=== PATIENT | male | born 2000 | race Caucasian/White ===

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

== ENCOUNTER 2022-12-04 19:27 | Emergency (ER) | payer OTHER, SELFPAY ==
--- NOTE | 2022-12-04 19:28 | ED.EXTPRO ---
HPI - Extremity Problem General Chief complaint: Wound/Laceration Stated complaint: Finger Laceration Time Seen by Provider: 12/04/22 19:28 History of Present Illness HPI Narrative: Patient is a 22 year old male with prior history of ADHD, depression, anxiety here after cutting his thumb with a knife. Patient states he was showing his friend a knife in his life collection and when his friend opened it it cut his right thumb. He notes it occurred about 30 minutes prior to arrival. He had someone's grandmother look at the wound and washed out with water and they advised him to come to the hospital as he may need stitches. patient describes pain as 10/10 and that it limits his ability to move his hand. He denies any sensory loss. He notes it has been oozing blood since the accident occurred. He is unsure when his last tetanus shot was. He denies any other injuries. He is left handed. Related Data Home Medications Medication Instructions Recorded Confirmed No Home Medications 12/04/22 12/04/22 Allergies Allergy/AdvReac Type Severity Reaction Status Date / Time No Known Allergies Allergy Mild Verified 01/23/19 19:13 Review of Systems Review of Systems: All systems reviewed & are unremarkable except as noted in HPI and below PMFSH Past Medical History Medical History ADHD Adjustment insomnia Femur fracture, left age 13-14yo from football No pertinent family history Surgical History Surgical History History of orthopedic surgery femur repaired Social History Social History Smoking status: Never smoker Exam Narrative: GENERAL: Well-appearing, well-nourished, and in no acute distress. HEAD: Normocephalic, atraumatic. EYES: PERRLA and EOMI. ENT: Nares clear. Mucous membranes moist. NECK: Supple. CHEST: Clear to auscultation. No respiratory distress. HEART: Regular rate and rhythm. Normal peripheral pulses. ABDOMEN: Soft, nontender, nondistended. EXTREMITIES: Normal range of motion. Patient has a 2 cm laceration to the medial palmar aspect of the thumb. Normal ROM, no concern for flexor tendon injury. Normal capillary refill and sensation distal to injury. SKIN: Warm, dry, no rash. NEURO: No focal deficits. Alert and oriented x3. PSYCH: Normal mood and affect. Course Course Emergency Course: Chart review performed. Patient here after cutting his thumb with a knife. Prior visits for wrist sprain and ankle sprain. Patient seen evaluated, nontoxic appearing. He appears to have a an isolated laceration to the right thumb. No concern for tendon involvement. It does seem to be deep enough and gapes with movement that he would benefit from sutures however patient adamantly refuses sutures. Discussed that this would probably be the best for healing of this laceration and he continues to decline. We will place skin adhesive and Steri-Strips. He is advised to closely follow up with his primary care doctor. No concern for bone or joint involvement, no concern for foreign body. Will update tetanus. The results of pertinent diagnostic studies and exam findings were discussed. The patient?s provisional diagnosis and plan of care were discussed with the patient and present family. The patient and/or present family expressed understanding of the diagnosis and plan. The nurse was instructed to provide written instructions and appropriate follow-up information. The patient understands their need and responsibility to obtain additional follow-up as instructed. The risks of medications administered and prescribed were discussed with the patient and family present. Vital Signs Vital signs: Vital Signs Temperature 98.3 F 12/04/22 19:29 Pulse Rate 106 H 12/04/22 19:29 Respiratory Rate 18 12/04/22 19:29 Blood Pressure 1
[2022-12-04 19:29] VITALS: BP 149/81; PULSE 106; RESP 18; TEMP 36.8; O2SAT 96
[2022-12-04] MEDS: TETANUS,DIPHTHERIA,AC PERTUSSIS ADULT 0.5 ML (ADACEL) IM (19:51)
[2022-12-04 19:58] VITALS: BP 133/71; PULSE 88; RESP 18; TEMP 36.6; O2SAT 97
== END 2022-12-04 20:06 | disposition home or self-care (01) ==
LOC: CHSED 19:51
PROVIDERS: Emergency Provider Student in an Organized Health Care Education/Training Program; PCP Physician Assistant
DX: S61.011A Laceration without foreign body of right thumb without damage to nail, initial encounter (principal); Z23 Encounter for immunization; W26.0XXA Contact with knife, initial encounter
CPT/HCPCS: 12001; 90471; 90715; 99282